=== PATIENT | male | born 1945 | race Caucasian/White ===

== ENCOUNTER 2018-02-19 16:29 | Emergency (ER) | payer MEDICARE, MEDICAID ==
[2018-02-19 16:29] VITALS: BMI 29.1
[2018-02-19 16:46] VITALS: TEMP 98.4
[2018-02-19] MEDS ORDERED: Sodium Chloride 0.9% 1,000 ML IV STA (17:24)
--- NOTE | 2018-02-19 17:25 | ED PDOC ---
Arrival/HPI - General Chief Complaint: Male Genitourinary Time Seen by Provider: 02/19/18 17:16 Historian: Patient - History of Present Illness Narrative History of Present Illness (Text): 02/19/18 17:24 This 73 yo male with pmh hypertension, bph, presents to this emergency department complaining of hematuria x 5 days. Patient admits hematuria has improved, but it still persist. Patient denies recent trauma, shortness of breath, chest pain, abdominal pain, n/v, rectal bleeding, testicular pain, penile discharge, urinary incontinence, dizziness, or abnormal gait. Patient stated he called Dr. Piña office , who recommended patient to come to emergency department . Time/Duration: Other (see hpi) Context: Home Past Medical History - Provider Review Nursing Documentation Reviewed: Yes - Infectious Disease Hx of Infectious Diseases: None - Tetanus Immunization Tetanus Immunization: Unknown - Cardiac Hx Cardiac Disorders: Yes Hx Hypertension: Yes - Pulmonary Hx Respiratory Disorders: No - Neurological Hx Neurological Disorder: No - HEENT Hx HEENT Disorder: No - Renal Hx Renal Disorder: No - Endocrine/Metabolic Hx Endocrine Disorders: Yes Hx Diabetes Mellitus Type 2: Yes - Hematological/Oncological Hx Blood Disorders: No - Integumentary Hx Dermatological Disorder: Yes Other/Comment: RASH - Musculoskeletal/Rheumatological Hx Musculoskeletal Disorders: No - Gastrointestinal Hx Gastrointestinal Disorders: Yes Other/Comment: AP - Genitourinary/Gynecological Hx Genitourinary Disorders: Yes Hx Prostate Problems: Yes - Psychiatric Hx Psychophysiologic Disorder: No Hx Substance Use: No - Past Surgical History Past Surgical History: Non-Contributing - Surgical History Hx Appendectomy: Yes Other/Comment: PROSTATE SURGERY - Suicidal Assessment Feels Threatened In Home Enviroment: No Family/Social History - Physician Review Nursing Documentation Reviewed: Yes Family/Social History: Other (noncontributory) Smoking Status: Never Smoked Hx Alcohol Use: No Hx Substance Use: No Allergies/Home Meds Allergies/Adverse Reactions: Allergies No Known Allergies Allergy (Verified 02/19/18 16:37) Home Medications: Home Meds Medication Instructions Recorded Confirmed Simvastatin [Zocor] 40 mg PO DAILY 12/27/12 12/27/12 Atenolol [Tenormin] 25 mg PO DAILY 02/19/18 02/19/18 Docusate [Colace] 1 cap PO BID 02/19/18 02/19/18 Ergocalciferol (Vitamin D2) 1 cap PO Q7D 02/19/18 02/19/18 [Vitamin D2] Metformin HCl [Fortamet] 1,000 mg PO BID 02/19/18 02/19/18 Multivit with Iron-Minerals [Super 1 tab PO DAILY 02/19/18 02/19/18 Multiple] [place]-3 Acid Ethyl Esters 2 cap PO BID 02/19/18 02/19/18 amLODIPine [Norvasc] 10 mg PO DAILY 02/19/18 02/19/18 Review of Systems - Review of Systems Constitutional: Normal. absent: Fatigue, Weight Change, Fevers Eyes: Normal ENT: Normal. absent: Sore Throat, Rhinorrhea Respiratory: Normal. absent: SOB, Cough Cardiovascular: Normal. absent: Chest Pain, Palpitations Gastrointestinal: Normal Genitourinary Male: Hematuria. absent: Dysuria, Frequency Musculoskeletal: Normal. absent: Back Pain, Neck Pain Skin: Normal. absent: Rash Neurological: Normal. absent: Headache, Dizziness, Focal Weakness, Gait Changes , Speech Changes, Facial Droop, Disequilibrium Endocrine: Normal Hemo/Lymphatic: Normal Psychiatric: Normal Physical Exam Vital Signs Temp Pulse Resp BP Pulse Ox 02/19/18 16:43 98.4 F 65 16 130/73 96 Temperature: Afebrile Blood Pressure: Normal Pulse: Regular Respiratory Rate: Normal Appearance: Positive for: Well-Appearing, Non-Toxic, Comfortable Pain Distress: None Mental Status: Positive for: Alert and Oriented X 3 - Systems Exam Head: Present: Atraumatic, Normocephalic Pupils: Present: PERRL Extroacular Muscles: Present: EOMI Conjunctiva: Present: Normal Mouth: Present: Moist Mucous Membranes Neck: Present: Normal Range of Motion Respiratory/Chest: Present: Clear to Auscultation, Good Air Exchange. No: Respiratory Distress, Accessory Muscle Use Cardiovascular: Present: Regular Rate and Rhythm, Normal S1, S2. No: Murmurs Abdomen: No: Tenderness, Distention, Peritoneal Signs Genitourinary Male: Present: Normal External Genitalia, Other (No penile bleeding, no rash). No: Circumcised Penis, Lesions, Penile Discharge, Testicle Tenderness, Penile Swelling, Masses, Erythema, Hernias, Testicle Swelling Back: Present: Normal Inspection. No: CVA Tenderness Upper Extremity: Present: Normal Inspection. No: Cyanosis, Edema Lower Extremity: Present: Normal Inspection. No: Edema Neurological: Present: GCS=15, CN II-XII Intact, Speech Normal Skin: Present: Warm, Dry, Normal Color. No: Rashes Psychiatric: Present: Alert, Oriented x 3, Normal Insight, Normal Concentration Medical Decision Making ED Course and Treatment: 02/19/18 20:49 Re-evaluation. Patient feels better. Discussed results and plan with patient who expresses understanding. All questions answered and there is agreement with the plan to discharge home with instructions. Patient stable for discharge. Return if symptoms persist or worsen. Patient was recommended to follow up private Urologist in 2-3 days, drink enough fluids, to review urine culture in 2-3 days. to return to emergency department if symptoms worsen, fever, or flank pain. Re-evaluation Time: 20:49 Reassessment Condition: Re-examined, Improved - Lab Interpretations Lab Results: 02/19/18 17:45 02/19/18 17:45 Lab Results 02/19/18 17:45: Sodium 141, Potassium 3.8, Chloride 102, Carbon Dioxide 29, Anion Gap 14, BUN 21, Creatinine 1.2, Est GFR ( Amer) > 60, Est GFR (Non- Af Amer) 59, Random Glucose 119 H, Calcium 9.6, Total Bilirubin 0.3, AST 21, ALT 26, Alkaline Phosphatase 82, Total Protein 7.7, Albumin 4.3, Globulin 3.4, Albumin/Globulin Ratio 1.3, Lipase 453 H 02/19/18 17:45: PT 11.3, INR 0.99, APTT 28.5 02/19/18 17:45: WBC 6.0, RBC 4.35, Hgb 12.0 L, Hct 34.9 L, MCV 80.2, MCH 27.6, MCHC 34.4, RDW 12.8, Plt Count 207, MPV 11.9 H, Gran % 57.9, Lymph % (Auto) 34.7 , [place] % (Auto) 4.5, Eos % (Auto) 2.2, Baso % (Auto) 0.7, Gran # 3.50, Lymph # ( Auto) 2.1, [place] # (Auto) 0.3, Eos # (Auto) 0.1, Baso # (Auto) 0.04 04/18/18 17:20: Urine Color Yellow, Urine Appearance Sl cloudy, Urine pH 6.0, Ur Specific [place] >= 1.030, Urine Protein 100 H, Urine Glucose (UA) Negative, Urine Ketones Trace H, Urine Blood Large H, Urine Nitrate Negative, Urine Bilirubin Negative, Urine Urobilinogen 0.2, Ur Leukocyte Esterase Trace H, Urine RBC Tntc, Urine WBC 20 - 25, Ur Epithelial Cells 6 - 8, Urine Bacteria Mod I have reviewed the lab results: Yes Interpretation: No clinic. lab abnormalty - RAD Interpretation Narrative RAD Interpretations (Text): 02/19/18 20:52 Patient Name: ALYSSA HEBERT ABD PELVIS W/O PO OR IV CONT Exam Date: 02/19/18 FINDINGS: Lung bases: Increased interstitial markings are identified within the visualized lungs. Heart: There is coronary artery calcification. ABDOMEN: Liver: Unremarkable. No mass. Gallbladder and bile ducts: No calcified stones. No ductal dilation. Pancreas: Normal contour. No ductal dilation. Spleen: No splenomegaly. Adrenals: Within the left adrenal gland, there is a septated hypodense lipomatous mass versus 2 smaller lipomatous lesions. This measures as a whole 3.2 x 2.2 x 2.5 cm. This is consistent with myelolipoma(s). Kidneys and ureters: Hypodense left renal cysts are visualized, the largest measuring 3.2 x 2.5 cm. This measured cyst is mildly complex, with tiny peripheral calcifications. There is no hydronephrosis bilaterally. No obstructive calculi are identified within the ureters bilaterally. Stomach and bowel: There is significant fecal distention of the rectum. Moderate fecal material is identified within the colon. Evaluation of bowel is limited by the absence of oral contrast. Appendix: The appendix is not visualized. PELVIS: Bladder: No stones. Reproductive: The prostate is enlarged. ABDOMEN and PELVIS: Intraperitoneal space: No free air. Bones/joints: There is abnormal morphology of the inferior left pubic ramus and ischial tuberosity, suggestive of an old fracture. Hypertrophic degenerative changes are noted within the spine. There is mild convexity of the lumbar spine to the right. Soft tissues: Mild retroareolar density is seen bilaterally, consistent with gynecomastia. There is mild herniation of fat into the left inguinal canal. Vasculature: There is minimal atherosclerotic calcification of the abdominal aorta. No abdominal aortic aneurysm. Lymph nodes: No significant retroperitoneal or intrapelvic lymphadenopathy. IMPRESSION: 1. Hypodense left renal cysts are visualized, the largest measuring 3.2 x 2.5 cm. This measured cyst is mildly complex, with tiny peripheral calcifications. Follow-up ultrasonography is recommended. 2. There is no hydronephrosis bilaterally. No obstructive calculi are identified within the ureters bilaterally. 3. Within the left adrenal gland, there is a septated hypodense lipomatous mass versus 2 smaller lipomatous lesions. This measures as a whole 3.2 x 2.2 x 2.5 cm. This is consistent with myelolipoma(s). 4. The prostate is enlarged. 5. There is significant fecal distention of the rectum. 6. Additional CT findings described above. Dictated By: Jose Mosley MD, MD Radiology Orders: 02/19/18 17:17 ABD & PELVIS W/O PO OR IV CONT [CT] Stat - Medication Orders Current Medication Orders: Discontinued Medications Sodium Chloride (Sodium Chloride 0.9%) 1,000 mls @ 999 mls/hr IV .Q1H1M STA Stop: 02/19/18 18:24 Last Admin: 02/19/18 17:37 Dose: 999 mls/hr eMAR Start Stop Document 02/19/18 17:37 SF (Rec: 02/19/18 18:37 [place] [facility] [place] [facility] [id number] Intravenous Solution Start Date 02/19/18 Start Time 17:37 End Date 02/19/18 End time 18:38 Total Infusion Time 61 Ceftriaxone Sodium (Rocephin 1 Gram Ivpb) 1 gm in 100 mls @ 200 mls/hr IVPB STAT STA PRN Reason: Protocol Stop: 02/19/18 20:39 Disposition/Present on Arrival - Present on Arrival Any Indicators Present on Arrival: No History of DVT/PE: No History of Uncontrolled Diabetes: No Urinary Catheter: No History of Decub. Ulcer: No History Surgical Site Infection Following: None - Disposition Have Diagnosis and Disposition been Completed?: Yes Diagnosis: Acute hemorrhagic cystitis Disposition: HOME/ ROUTINE Disposition Time: 20:54 Patient Plan: Discharge Condition: GOOD Discharge Instructions (ExitCare): Acute Cystitis (DC) Additional Instructions: Call Dr. Piña, urologist office for follow up visit in 1-2 days. Take antbiotic as instructed. Review urine culture result in 2-[address] Piña. Return to emergency if symptoms worsen, fever or flank pain. Prescriptions: Cephalexin [cephalexin] 500 mg PO TID #30 cap Referrals: Thierno Boyd MD [Primary Care Provider] - Follow up with primary Ron Piña MD [Staff Provider] - Follow up with primary Forms: [employer] (Russian)
[2018-02-19 18:11] LABS: URINE APPEARANCE SL CLOUDY (CLEAR); URINE BILIRUBIN NEGATIVE (NEGATIVE); URINE BLOOD LARGE (NEGATIVE); URINE COLOR YELLOW (YELLOW); URINE GLUCOSE (UA) NEGATIVE (NEGATIVE); URINE LEUKOCYTE ESTERASE TRACE Leu/uL (NEGATIVE); URINE PROTEIN 100 mg/dL (<30 mg/dL); URINE UROBILINOGEN 0.2 E.U./dL (<1 E.U./dL)
[2018-02-19 18:11] LABS: BASO # 0.04 K/mm3 (0.0-2.0); BASO % 0.7 % (0.0-3.0); EOS # 0.1 (0.0-0.7); EOS % 2.2 % (1.5-5.0); GRAN # 3.5 (1.4-6.5); GRAN % 57.9 % (50.0-68.0); LYMPH # 2.1 (1.2-3.4); LYMPH % 34.7 % (22.0-35.0); MEAN CELL VOLUME 80.2 fl (80.0-105.0); MEAN CORPUSCULAR HEMOGLOBIN 27.6 pg (25.0-35.0); MEAN CORPUSCULAR HGB CONC 34.4 g/dl (31.0-37.0); MEAN PLATELET VOLUME 11.9 fl (7.0-11.0); MONO # 0.3 (0.1-0.6); MONO % 4.5 % (1.0-6.0); RBC 4.35 10^6/uL (3.5-6.1); RED CELL DISTRIBUTION WIDTH 12.8 % (11.5-14.5)
[2018-02-19 18:15] LABS: INR 0.99 (0.93-1.08); PARTIAL THROMBOPLASTIN TIME 28.5 Seconds (25.1-36.5); PROTHROMBIN TIME 11.3 SECONDS (9.4-12.5)
[2018-02-19 18:16] LABS: ALB/GLOB RATIO 1.3 (1.1-1.8); ALBUMIN 4.3 g/dL (3.0-4.8); ALT/SGPT 26 U/L (7-56); AST/SGOT 21 U/L (17-59); BLOOD UREA NITROGEN 21 mg/dL (7-21); CALCIUM 9.6 mg/dL (8.4-10.5); GFR AFRICAN-AMERICAN > 60; GFR NON-AFRICAN AMERICAN 59; LIPASE 453 U/L (23-300)
[2018-02-19 18:20] LABS: URINE RBC TNTC /hpf (0-2); URINE WBC 20 - 25 /hpf (0-6)
[2018-02-19 18:21] LABS: URINE BACTERIA MOD (NEG)
--- NOTE | 2018-02-19 19:39 | CT ---
EXAM: CT Abdomen and Pelvis Without Intravenous Contrast EXAM DATE/TIME: 02/19/2018 5:17 PM CLINICAL HISTORY: The patient age is 73 years old and is male; Signs and symptoms; Other: Hematuria Facility exam id and description: Ct abdpelscon abd pelvis w/o po or iv cont TECHNIQUE: Axial computed tomography images of the abdomen and pelvis without intravenous contrast. All CT scans at this facility use one or more dose reduction techniques, viz.: automated exposure control; ma/kV adjustment per patient size (including targeted exams where dose is matched to indication; i.e. head); or iterative reconstruction technique. Coronal and sagittal reformatted images were created and reviewed. COMPARISON: US - BLADDER ONLY/RESIDUAL URINE 2017-02-27 13:46 FINDINGS: Lung bases: Increased interstitial markings are identified within the visualized lungs. Heart: There is coronary artery calcification. ABDOMEN: Liver: Unremarkable. No mass. Gallbladder and bile ducts: No calcified stones. No ductal dilation. Pancreas: Normal contour. No ductal dilation. Spleen: No splenomegaly. Adrenals: Within the left adrenal gland, there is a septated hypodense lipomatous mass versus 2 smaller lipomatous lesions. This measures as a whole 3.2 x 2.2 x 2.5 cm. This is consistent with myelolipoma(s). Kidneys and ureters: Hypodense left renal cysts are visualized, the largest measuring 3.2 x 2.5 cm. This measured cyst is mildly complex, with tiny peripheral calcifications. There is no hydronephrosis bilaterally. No obstructive calculi are identified within the ureters bilaterally. Stomach and bowel: There is significant fecal distention of the rectum. Moderate fecal material is identified within the colon. Evaluation of bowel is limited by the absence of oral contrast. Appendix: The appendix is not visualized. PELVIS: Bladder: No stones. Reproductive: The prostate is enlarged. ABDOMEN and PELVIS: Intraperitoneal space: No free air. Bones/joints: There is abnormal morphology of the inferior left pubic ramus and ischial tuberosity, suggestive of an old fracture. Hypertrophic degenerative changes are noted within the spine. There is mild convexity of the lumbar spine to the right. Soft tissues: Mild retroareolar density is seen bilaterally, consistent with gynecomastia. There is mild herniation of fat into the left inguinal canal. Vasculature: There is minimal atherosclerotic calcification of the abdominal aorta. No abdominal aortic aneurysm. Lymph nodes: No significant retroperitoneal or intrapelvic lymphadenopathy. IMPRESSION: 1. Hypodense left renal cysts are visualized, the largest measuring 3.2 x 2.5 cm. This measured cyst is mildly complex, with tiny peripheral calcifications. Follow-up ultrasonography is recommended. 2. There is no hydronephrosis bilaterally. No obstructive calculi are identified within the ureters bilaterally. 3. Within the left adrenal gland, there is a septated hypodense lipomatous mass versus 2 smaller lipomatous lesions. This measures as a whole 3.2 x 2.2 x 2.5 cm. This is consistent with myelolipoma(s). 4. The prostate is enlarged. 5. There is significant fecal distention of the rectum. 6. Additional CT findings described above.
[2018-02-19] MEDS ORDERED: cefTRIAXone 1 gm 1 GM/100 ML BAG IVPB STA (20:10)
[2018-02-19 21:12] VITALS: BP 128/75; PULSE 72; RESP 17; O2SAT 97
== END 2018-02-19 21:45 | disposition home or self-care (01) ==
LOC: ED 16:29
DX: N30.01 Acute cystitis with hematuria (principal); I10 Essential (primary) hypertension; N40.0 Benign prostatic hyperplasia without lower urinary tract symptoms; E11.9 Type 2 diabetes mellitus without complications
CPT/HCPCS: 74176; 80053; 81001; 83690; 85025; 85610; 85730; 87086; 96361; 96365; 99284; J0696; J7040